=== PATIENT | female | born 1940 | race Caucasian/White ===

== ENCOUNTER → 2018-03-24 | Outpatient (CLI) | payer MEDICARE ==
[2018-03-24 15:49] LABS: BASO # 0.1 10^3/uL (0.0-0.2); EOS # 0.5 10^3/uL (0.0-0.50); EOS % 5.6 % (0.0-3.0); HEMATOCRIT 41.6 % (36.0-47.0); HEMOGLOBIN 13.4 g/dl (12.0-15.5); IMMATURE GRANULOCYTE % 0.5 % (0-3.0); LYMPH # 1.5 10^3/uL (1.5-4.5); LYMPH % 15.8 % (24.0-44.0); MEAN CORPUSCULAR HEMOGLOBIN 30.3 pg (27.0-33.0); MEAN CORPUSCULAR HGB CONC 32.2 g/dl (32.0-36.5); MEAN CORPUSCULAR VOLUME 94.1 fl (80.0-96.0); MONO # 1.1 10^3/uL (0.0-0.8); MONO % 11.7 % (0.0-5.0); NEUTROPHILS # 6.1 10^3/uL (1.8-7.7); NEUTROPHILS % 65.4 % (36.0-66.0); PLATELET COUNT, AUTOMATED 275 10^3/uL (150-450); RED BLOOD COUNT 4.42 10^6/uL (4.00-5.40); RED CELL DISTRIBUTION WIDTH 13.5 % (11.5-14.5); WHITE BLOOD COUNT 9.3 10^3/uL (4.0-10.0)
[2018-03-24 16:03] LABS: ANION GAP 10 MEQ/L (8-16); BLOOD UREA NITROGEN 47 MG/DL (7-18); CALCIUM LEVEL 9.7 MG/DL (8.8-10.2); CARBON DIOXIDE LEVEL 27 MEQ/L (21-32); CHLORIDE LEVEL 106 MEQ/L (98-107); CREATININE FOR GFR 1.73 MG/DL (0.55-1.30); GLOMERULAR FILTRATION RATE 30.2 (>39); GLUCOSE, FASTING 94 MG/DL (70-100); POTASSIUM SERUM 4.4 MEQ/L (3.5-5.1); SODIUM LEVEL 143 MEQ/L (136-145)
== END ==
LOC: M LAB 15:05
DX: I70.213 Atherosclerosis of native arteries of extremities with intermittent claudication, bilateral legs (principal); N18.9 Chronic kidney disease, unspecified
CPT/HCPCS: 80048

== ENCOUNTER → 2018-04-14 | Outpatient (CLI) | payer MEDICARE | LOC: M IRPRO 06:21 | DX: Z53.8 Procedure and treatment not carried out for other reasons (principal) ==

== ENCOUNTER → 2019-04-01 | Outpatient (CLI) | payer MEDICARE ==
[~2019-04-01] MED LIST: AMLO5TAB6 PO; ASPI81TA26 PO; BUPIVACAINE HCL 0.5% 10 ML VIAL As Ordered ONE; CITA10TA5 PO; FAMO40TA3 PO; GABA600T4 PO; HEPARIN 1,000 UNITS/ML 10ML VIAL (FOR RADIOLOGY& DIALYSIS ONLY) As Ordered ONE; ISOVUE-300 61% 50ML VIAL (Q9967) As Ordered ONE; KLOR10TA76 PO; LASI20TA3 PO; LEVA750T7 PO; LIDOCAINE 2% MDV 20 ML VIAL As Ordered ONE; LOPE2TAB3 PO; LOSA100T5 PO; MAGN250T7 PO; MEGA1CAP3 PO; METO50TA7 PO; MIDAZOLAM INJ 2 MG/2 ML VIAL (J2250) As Ordered ONE; NORT50CA PO; OCUVTAB4 PO; OMEP40CA2 PO; PROTAMINE SULF INJ 50 MG/5 ML VIAL (J2720) As Ordered ONE; RANI300T PO; SPIR-10 PO; diphenhydrAMINE INJ 50MG/ML VIAL (J1200) As Ordered ONE; fentaNYL 100 MCG/2 ML INJECTION (J3010) As Ordered ONE
[2019-04-01 07:08] LABS: HEMATOCRIT 37.7 % (36.0-47.0); MEAN CORPUSCULAR HEMOGLOBIN 29.6 pg (27.0-33.0); MEAN CORPUSCULAR HGB CONC 31.8 g/dl (32.0-36.5); MEAN CORPUSCULAR VOLUME 93.1 fl (80.0-96.0); PLATELET COUNT, AUTOMATED 288 10^3/uL (150-450); RED BLOOD COUNT 4.05 10^6/uL (4.00-5.40); WHITE BLOOD COUNT 11.2 10^3/uL (4.0-10.0)
[2019-04-01 07:32] LABS: CALCIUM LEVEL 9.3 MG/DL (8.8-10.2); CREATININE FOR GFR 1.79 MG/DL (0.55-1.30); POTASSIUM SERUM 4.7 MEQ/L (3.5-5.1)
[2019-04-01 13:15] VITALS: BP 128/60
--- NOTE | 2019-04-08 07:13 | REPIR ---
DATE OF PROCEDURE: 04/01/2019 ATTENDING SURGEON: Dr. 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 PROCEDURE: Left common femoral artery cannulation, selective right common femoral artery catheter placement with right lower extremity angiogram, selective right superficial femoral artery catheter placement with angiogram, selective popliteal artery catheter placement with angiogram, right popliteal artery angioplasty and stent with a 7 x 40 balloon via Olga drug-eluting balloon postdilated with a 6 x 40 mm balloon, right superficial femoral artery angioplasty stent with a 7 x 120 Olga drug-eluting stent postdilated with a 6 x 200 balloon, MYNX closure of the left common femoral arteriotomy. 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 The patient will undergo angiogram with possible angioplasty stent and/or atherectomy. ANESTHESIA: Local with sedation with 1 mg of Versed, 25 mcg of fentanyl and 20 mL of 2% lidocaine mix of 0.5% Marcaine. FLUORO TIME: 24.6 minutes. CONTRAST: 5 mL of Isovue-300. SEDATION TIME: From 08:10 a.m. to 09:27 a.m. for a total of 77 minutes. HEPARIN: 6000 units. COMPLICATIONS: None. DRAINS: None. SPECIMENS: None. IMPLANTS: None. FINDINGS: The patient had nonpalpable pulses prior to the intervention. At the completion of the intervention, the patient had a 2+ palpable dorsalis pedis pulse in the right foot. PROCEDURE: The patient was taken to the angiography suite, placed supine on the angiography room table and then prepped and draped in a standard surgical fashion. The left common femoral artery was cannulated with a micropuncture needle. A wire was brought up and over the bifurcation using an Omni flush catheter. The catheter was placed in the right common femoral artery with an angiogram being performed. The catheter was advanced in the superficial femoral artery and angiography was performed. Catheter was advanced into the popliteal artery and angiography was performed. This showed severe near occlusive atherosclerotic arterial occlusive disease in the superficial femoral and popliteal artery. The popliteal artery underwent angioplasty and stenting with 7 x 40 Olga drug-eluting stent which was postdilated with a 6 x 40 mm balloon. A completion angiogram showed residual stenosis above the stent and the superficial femoral artery then underwent angioplasty and stenting with a 7 x 120 Olga drug-eluting stent postdilated with 6 x 200 balloon. Completion angiogram showed resolution of the stenosis with single vessel runoff into the foot via the anterior tibial artery. Catheters and wires were removed. The MYNX closure was used to close the arteriotomy in the left common femoral artery with an additional 10 minutes of adjunctive pressure applied for hemostasis. Dressings were then applied. The patient tolerated the procedure well. All instrument, sponge and needle counts were correct at the end the case. There were no complications. Dr. Varela was present for and directed the entire case. The patient was transferred to the holding area and subsequently discharged in stable condition
== END ==
LOC: M IRPRO 06:32
PROVIDERS: ATTEND Surgery Vascular Surgery
DX: I70.211 Atherosclerosis of native arteries of extremities with intermittent claudication, right leg (principal); I12.9 Hypertensive chronic kidney disease with stage 1 through stage 4 chronic kidney disease, or unspecified chronic kidney disease; E11.22 Type 2 diabetes mellitus with diabetic chronic kidney disease; N18.9 Chronic kidney disease, unspecified; F32.9 Major depressive disorder, single episode, unspecified; I25.10 Atherosclerotic heart disease of native coronary artery without angina pectoris
CPT/HCPCS: 37226; 80048; 85027; 99152; 99153; C1725; C1760; C1769; C1874; C1887; C1894; J1200; J2250; J3010; Q9967